=== PATIENT | female | born 1955 | race Caucasian/White ===

== ENCOUNTER 2020-01-02 05:51 | Day surgery (SDC) | payer OTHER, SELFPAY ==
[~2020-01-02] VITALS: Ht 154.9 cm; Wt 67.1 kg
[2020-01-02] MEDS ORDERED: MIDAZOLAM 2 MG/2 ML VIAL ONE (08:06)
[2020-01-02] MEDS ORDERED: fentaNYL 0.05 MG/ML VIAL ONE (08:07)
[2020-01-02] MEDS ORDERED: LIDOCAINE 2% 100 MG/5 ML UJET TP ONE (08:07)
[2020-01-02] MEDS ORDERED: fentaNYL 0.05 MG/ML VIAL IVP ONE (08:23)
[2020-01-02] MEDS ORDERED: MIDAZOLAM 2 MG/2 ML VIAL IVP ONE (08:24)
[2020-01-02] MEDS ORDERED: MIDAZOLAM 2 MG/2 ML VIAL IVP SCH (09:30)
[2020-01-02] MEDS ORDERED: fentaNYL 0.05 MG/ML VIAL IVP SCH (09:30)
== END 2020-01-02 10:00 | disposition home or self-care (01) ==
LOC: MDS 05:51 → MMU 06:02 → MDS 10:00
PROVIDERS: ATTEND Internal Medicine Gastroenterology
DX: Z12.11 Encounter for screening for malignant neoplasm of colon (principal); K57.30 Diverticulosis of large intestine without perforation or abscess without bleeding; Z86.010 Personal history of colon polyps; Z79.899 Other long term (current) drug therapy
CPT/HCPCS: 45378; J2250; J3010; 36415